=== PATIENT | female | born 1980 | race Caucasian/White ===

== ENCOUNTER 2023-11-07 06:29 | Day surgery (SDC) | payer BC, SELFPAY ==
[2023-11-07] VITALS (11 sets, daily range): BP systolic 108–128; BP diastolic 65–84; BMI 27.6
[2023-11-07 12:00] LABS: Hematocrit 36.7 % (37.0-47.0); Hemoglobin 11.8 g/dL (12.0-16.0); Mean Corp Hgb Conc. 32.2 g/dL (33.0-37.0); Mean Corpuscular Hgb 21.4 pg (27.0-31.0); Mean Corpuscular Volume 66.5 fL (81.0-99.0); Platelet Count 219 10^3/uL (130-400); Red Blood Cell Count 5.52 10^6/uL (4.20-5.40); White Blood Cell Count 9.3 10^3/uL (4.8-10.8)
--- NOTE | 2023-11-07 13:55 | W.SUR.PREOP ---
Pre-Operative Surgical Note
-
I have examined this patient prior to the performance of the scheduled procedure.
The patient's condition is unchanged from the time of the current History and
Physical and the patient is able to undergo the scheduled procedure.
--- NOTE | 2023-11-07 13:55 | W.IMMPOSTOP ---
Surgical Immed Post Op Note
-
Primary Surgeon: VIKKI Ann MD
Assisting Surgeon:
Pre-op Diagnosis: History of bilateral surgically acquired absence of breasts
Post-op Diagnosis: Same
Procedure Performed: Bilateral revisions to reconstructed breast, fat grafting with donor site trunk and medial thighs
Anesthesia Type: General
Specimen / Cultures: None
Estimated Blood Loss: 30 cc
Complications: None
Operative Findings: As expected
--- NOTE | 2023-11-07 13:56 | OR.RPT ---
Operative Report
Operative Report
Surgeon: VIKKI Ann MD
Preoperative diagnosis: History of surgically acquired absence of breast, status post bilateral breast reconstruction
Postoperative diagnosis: Same
Procedure:
1. Revisions to bilateral reconstructed breasts
2. Fat grafting to bilateral reconstructed breasts 135 cc per side total of 270cc
3. Bilateral excision of abdominal dogears, 3 x 5 cm
4. Adjacent tissue transfer trunk, bilateral, 3 x 5 cm
5. Intralesional injection of steroid, 3 units for bilateral breasts and abdominal scar
Anesthesia: General
Complications: None
EBL: 30 cc
Indications for procedure: Patient is a 43-year-old female with a high risk of breast cancer who underwent a medically necessary bilateral mastectomy and immediate D IEP flap reconstruction. She followed a routine postoperative course and presented
to the office for consideration of revisions to the bilateral reconstructed breast as well as abdominal donor site. Specifically she desired that the skin island to be removed from the bilateral reconstructed breasts. From the bilateral donor site
of the abdomen she desired excision of dogears. She also wanted improvement in the upper pole contour deficiency. As such we made a plan for revisions to the bilateral reconstructed breast with surgical excision of the skin islands, bilateral
dogear excisions with adjacent tissue transfer, fat grafting to the bilateral buttocks with donor site trunk and medial thighs. Given the fact that she had keloid scars we would also proceed with intralesional injection of steroid. Patient
understood the risks and desired to proceed. Consents were signed accordingly.
Procedure in detail:
Patient was identified in the preoperative area and the surgical site was confirmed to be the bilateral breast bilateral abdomen and medial thighs. She was marked accordingly and consents were confirmed. All questions were answered. She was taken
back to the operating placed supine on the table. Anesthesia was induced and LMA was placed. Patient was then prepped with ChloraPrep solution and draped in usual sterile fashion. A timeout for patient safety was performed and was confirmed that
bilateral SCDs were in place and preoperative antibiotics have been administered the procedure began first with the injection of tumescent solution in the proposed fat grafting donor sites of the medial thighs lateral flanks. Tumescent solution was
also used as local for the revisions to the bilateral reconstructed breast. A series of 15 blade focals were made to allow for cannula insertion. Tumescent solution consisted of 50 mL 1% lidocaine with 1 amp of epi diluted in 1 L of normal saline.
A total of 1800 cc of tumescent was distributed over the bilateral medial thighs bilateral lateral flanks of bilateral breast appropriate time was waited and pretunneling was performed off suction. While the tumescent setting, the revisions of the
bilateral reconstructed breast were performed. The skin islands were marked for elliptical excision along the inframammary fold. 15 blade was used to make the incision and dissection continued down to the flap. The skin was excised completely and
dissection continued up to the level of the nipple areolar complex between the mastectomy skin flap plane and the flap itself. This allowed the mastectomy flap to be advanced to the inframammary fold and closed with a series of 3-0 Monocryl's.
This was performed bilaterally. Fat graft harvest then proceeded with the lipo aspiration of approximately 1200 cc from the bilateral medial thighs and bilateral flanks. This was processed with the pure graft system. The bilateral abdominal
dogear excisions were then performed. These were measured to be approximately 3 x 5 cm per side. After excision and adjacent tissue transfer was used to advance lateral tissue into the defect and eliminate the dogear. This was tentatively closed
and then a series of 3-0 Monocryl's were placed in the deep dermis and subcuticular. At this time 270 cc of fat graft had been processed after being rinsed with lactated Ringer's. This was split evenly between the bilateral breast 135 cc per side.
This was placed in the superior medial upper pole and into the central portion of the flap itself. After this 3 mL of Kenalog 40 were diluted with 3 mL of normal saline. This was distributed along the bilateral breast scars and along the
abdominal scar. Patient tolerated the procedure well was performed without complication all counts were correct at the end the case. She was extubated taken the PACU for further care. Abdominal binder was placed over the abdomen. Dressings
consisted of Tegaderm dry gauze and bacitracin ointment
[2023-11-07] MEDS: DILAUDID 0.25 MG IV ×2 (14:13→14:31)
[2023-11-07] MEDS: ROXICODONE 5 MG PO (15:51)
== END 2023-11-07 16:12 | disposition home or self-care (01) ==
LOC: SDS 06:29
PROVIDERS: Specialist; ATTENDING PHYSICIAN Surgery Plastic and Reconstructive Surgery
DX: N63.10 Unspecified lump in the right breast, unspecified quadrant (principal); N63.42 Unspecified lump in left breast, subareolar; D56.1 Beta thalassemia; Z90.13 Acquired absence of bilateral breasts and nipples; Z98.890 Other specified postprocedural states; Z80.3 Family history of malignant neoplasm of breast
CPT/HCPCS: 19380; 15771; 15772; 14000; 14001; 85027; 86850; 86900; 86901

== ENCOUNTER 2024-10-14 16:59 | Outpatient (RCR) | payer BC, SELFPAY | END 2024-10-14 23:59 | disposition home or self-care (01) | LOC: RPT 16:59 | PROVIDERS: ATTENDING PHYSICIAN Physician Assistant Surgical; FAMILY PHYSICIAN Nurse Practitioner Adult Health | DX: M22.2X1 Patellofemoral disorders, right knee (principal); Z73.6 Limitation of activities due to disability; R26.89 Other abnormalities of gait and mobility; M62.81 Muscle weakness (generalized); M25.561 Pain in right knee | CPT/HCPCS: 97110; 97161; 97530 ==

== ENCOUNTER 2024-11-06 15:56 | Outpatient (RCR) | payer BC, SELFPAY | END 2024-11-06 23:59 | disposition home or self-care (01) | LOC: RPT 15:56 | PROVIDERS: ATTENDING PHYSICIAN Physician Assistant Surgical; FAMILY PHYSICIAN Nurse Practitioner Adult Health | DX: M22.2X1 Patellofemoral disorders, right knee (principal); Z73.6 Limitation of activities due to disability; R26.89 Other abnormalities of gait and mobility; M62.81 Muscle weakness (generalized); M25.561 Pain in right knee | CPT/HCPCS: 97110; 97530 ==

== ENCOUNTER 2024-12-16 18:18 | Outpatient (RCR) | payer BC, SELFPAY | END 2024-12-16 23:59 | disposition home or self-care (01) | LOC: RPT 18:18 | PROVIDERS: ATTENDING PHYSICIAN Physician Assistant Surgical; FAMILY PHYSICIAN Nurse Practitioner Adult Health | DX: M22.2X1 Patellofemoral disorders, right knee (principal); Z73.6 Limitation of activities due to disability; R26.89 Other abnormalities of gait and mobility; M62.81 Muscle weakness (generalized); M25.561 Pain in right knee | CPT/HCPCS: 97110; 97140; 97530 ==

== ENCOUNTER → 2025-07-21 16:21 | Outpatient (REF) | payer BC, SELFPAY | LOC: RAD 16:21 | PROVIDERS: ATTENDING PHYSICIAN Obstetrics & Gynecology; FAMILY PHYSICIAN Nurse Practitioner Adult Health | DX: N92.1 Excessive and frequent menstruation with irregular cycle (principal) | CPT/HCPCS: 76830; 76856 ==